=== PATIENT | male | born 1965 | race Caucasian/White ===

== ENCOUNTER 2020-07-24 10:46 | Outpatient (CLI) | payer MEDICARE, SELFPAY ==
--- NOTE | 2020-07-24 11:15 | XR_ITS ---
WS: [id number] Right shoulder, 3 views, 07/24/2020 Clinical Data: PAIN IN RIGHT SHOULDER Comparison: None. Findings: No fractures or dislocations are seen. The AC joint is normal. The adjacent right clavicle, right sca pula and ribs are normal. The soft tissues are unremarkable. XR/XR shoulder RT min 2V* [id number] Impression: Negative right shoulder.
--- NOTE | 2020-07-24 11:15 | XR_ITS ---
WS: [id number] Right hand, 3 views, 07/24/2020 Clinical Data: PAIN IN RIGHT HAND Comparison: None. Findings: No fractures or dislocations are seen. The soft tissues are unremarkable. There is minima l calcification adjacent to the right first MCP joint unchanged. XR/XR hand RT min 3V* [id number] Impression: Negative right hand.
--- NOTE | 2020-07-24 11:15 | XR_ITS ---
WS: [id number] Left shoulder, 3 views, 07/24/2020 Clinical Data: PAIN IN LEFT SHOULDER Comparison: None. Findings: No fractures or dislocations are seen. The AC joint shows moderate osteoarthritis. The adjacent left clavicle, left scapula and ribs are normal. The soft tissues are unremarkable. There is an anterior cervical disc fusion. 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
== END 2020-07-24 10:47 | disposition home or self-care (01) ==
PROVIDERS: PCP Internal Medicine; Visit Provider Internal Medicine
DX: M79.641 Pain in right hand (principal); M25.512 Pain in left shoulder; M25.511 Pain in right shoulder; M19.012 Primary osteoarthritis, left shoulder
CPT/HCPCS: 73030; 73130

== ENCOUNTER 2023-12-06 14:39 | Emergency (ER) | payer MEDICARE, SELFPAY ==
[2023-12-06 14:53] VITALS: BP 158/87; PULSE 67; RESP 18; TEMP 36.7; O2SAT 96; BMI 23.9
[2023-12-06 16:16] VITALS: BP 130/101; PULSE 68; RESP 17; O2SAT 98
--- NOTE | 2023-12-06 16:27 | USR_ITS ---
PROCEDURE INFORMATION: Exam: US Duplex Left Lower Extremity Veins, Limited Exam date and time: 12/06/2023 5:37 PM Age: 58 years old Clinical indication: Pain; Foot; Left; Additional info: Swelling TECHNIQUE: Imaging protocol: Real-time duplex ultrasound of the left extremity with 2-D burris scale, color Doppler flow and spectral waveform analysis including responses to compression and other maneuvers (when performed) with image documentation. Limited exam focused on the left lower extremity veins. COMPARISON: US scrotum [id number] 03/17/2018 4:23 PM FINDINGS: Left deep veins: Unremarkable. The common femoral, femoral, proximal profunda femoral, popliteal, posterior tibial and peroneal veins are patent without thrombus. Normal compressibility, augmentation response and Doppler waveforms. Superficial veins: Greater saphenous vein at the saphenofemoral junction is patent without thrombus. Soft tissues: Unremarkable. US/CV venous duplex [facility] [id number] IMPRESSION: No sonographic evidence of deep vein thrombosis.
[2023-12-06 16:30] VITALS: BP 142/80; PULSE 64; RESP 16; O2SAT 97
--- NOTE | 2023-12-06 16:31 | ED_ITS ---
HPI - Extremity Problem 2 General: Chief complaint: Extremity Problem,Nontraumatic Stated complaint: LT foot swollen Time Seen by Provider: 12/06/23 16:20 Source: patient Mode of arrival: ambulatory Limitations: no limitations History of Present Illness: 58-year-old male with a history of rheum atoid arthritis states he been having some pain and swelling in his left ankle for the last few days. States he thought it may be due to his RA states his PCP is concerned he may have a DVT has had a history of an upper extremity DVT. He is on Coumadin along with steroids chronically. He denies any fevers denies any injury Associated symptoms: Deny chest pain, fever(s) or rash Related Data Allergies Allergy/AdvReac Type Severity Reaction Status Date / Time levofloxacin [From Levaquin] Allergy ALGY-Rash Verified 12/06/23 16:45 morphine Allergy ALGY-Redness Verified 12/06/23 16:45 of Skin Review of Systems 2 Const: Denies: fever(s), chills, body aches or change in appetite ENMT: Denies: throat pain or dental pain Card: Denies: chest pain Resp: Denies: dyspnea GI: Denies: abdominal pain, nausea, vomiting or diarrhea Musc: Reports: extremity pain; Denies: neck pain or back pain Skin/Breast: Denies: rash Neuro: Denies: headache(s) Physical Exam 2 Const: COMMON NORMALS: no acute distress, patient oriented x3 and healthy appearing HENMT: COMMON NORMALS: normocephalic and atraumatic HEAD & SCALP: n ormocephalic and atraumatic Neck/C-Spine: COMMON NORMALS: full ROM and supple Chest: COMMONS NORMALS: normal inspection of the chest Resp: COMMON NORMALS: normal respiratory effort Cardio: COMMON NORMALS: regular rate RATE: regular rate Extremity: NARRATIVE EXTREMITY EXAM: Slight tenderness to left lateral ankle minimal swelling no redness noted distal pulses intact Neuro: COMMON NORMALS: patient oriented x3, moves all extremities and no focal motor deficits Psych: COMMON NORMALS: mental status grossly normal, Normal thought process present and cooperative THOUGHT PROCESS: Normal thought process present Skin: COMMON NORMALS: no rashes or lesions noted and no wounds GENERAL SKIN EXAM: no rashes or lesions noted Course 2 Vital Signs: Vital signs: Vital Signs Temperature 98.1 F 12/06/23 14:53 Pulse Rate 64 12/06/23 16:30 Respiratory Rate 16 12/06/23 16:30 Blood Pressure 142/80 12/06/23 16:30 Pulse Oximetry 97 12/06/23 16:30 Oxygen Delivery Me thod Room Air 12/06/23 16:30 MDM - Extremity (Nontraumatic) Medical Decision Making Patient presents for left foot pains likely from his rheumatoid arthritis no signs of DVT blood works normal no signs of cellulitis or septic joint he stable for discharge follow-up with PCP return if worsening Medical Records I reviewed the patient's medical records. Lab Data I reviewed the patient's lab results. 12/06/23 16:40 Laboratory Results WBC 8.88 10^3/uL (3.29-11.43) 12/06/23 16:40 RBC 4.10 10^6/uL (3.85-5.65) 12/06/23 16:40 Hgb 14.40 g/dL (11.27-16.99) 12/06/23 16:40 Hct 41.3 % (37-53) 12/06/23 16:40 MCV 100.7 fl (82-101) 12/06/23 16:40 MCH 35.1 pg (27-33) H 12/06/23 16:40 MCHC 34.9 g/dL (30-55) 12/06/23 16:40 RDW 14.8 % (12.1-15.1) 12/06/23 16:40 Plt Count 367 10^3/cmm (157-399) 12/06/23 16:40 MPV 8.2 fL (7.4-10.4) 12/06/23 16:40 Neut % (Auto) 72.8 % 12/06/23 16:40 Lymph % (Auto) 17.8 % 12/06/23 16:40 [place] % (Auto) 8.8 % 12/06/23 16:40 Eos % (Auto) 0.0 % 12/06/23 16:40 Baso % (Auto) 0.3 % 12/06/23 16:40 Neut # (Auto) 6.46 10^3/uL (1.8-7.7) 12/06/23 16:40 Lymph # (Auto) 1.6 10^3/uL (0.8-4.8) 12/06/23 16:40 [place] # (Auto) 0.8 10^3/uL (0.2-0.9) 12/06/23 16:40 Eos # (Auto) 0.0 10^3/uL (0.0-0.8) 12/06/23 16:40 Baso # (Auto) 0.0 10^3/uL (0.0-0.1) 12/06/23 16:40 Nucleated RBC % (auto) 0 % 12/06/23 16:40 Nucleated RBCs # 0.0 /100WBC 12/06/23 16:40 ESR < 1 mm/hr (0-10) 12/06/23 16:40 PT 25.80 SECONDS (12.1-14.9) H 12/06/23 16:40 INR 2.26 (0.8-1.2) H 12/06/23 16:40 All radiology interpretation(s) finalized by discharge Discharge Plan Discharge Patient Disposition: Home Clinical Impression: Foot pain, left Condition: Stable Discharge Orders: Discharge ED (Routine); Ordered 12/06/23 Ordered By: Joce Aponte Referrals: Jacki Pappas MD [Primary Care Provider] - Discharge Diet: Advance as tolerated Discharge Activity: Resume usual activity Patient Instructions: Arthralgia (ED) Coding Level of Care Code ED Professional Poker Player for Armand Lino
[2023-12-06] MEDS: HYDROcodone-acetaminophen 5-325 mg Tablet 1 TAB PO (16:48)
[2023-12-06 16:51] LABS: Basophils % 0.3 %; Hematocrit 41.3 % (37-53); Lymphocytes # 1.6 10^3/uL (0.8-4.8); Lymphocytes % 17.8 %; Mean Corpuscular HGB Conc 34.9 g/dL (30-55); Mean Corpuscular Hemoglobin 35.1 pg (27-33); Mean Corpuscular Volume 100.7 fl (82-101); Mean Platelet Volume 8.2 fL (7.4-10.4); Monocytes # 0.8 10^3/uL (0.2-0.9); Monocytes % 8.8 %; Neutrophils # 6.46 10^3/uL (1.8-7.7); Neutrophils % 72.8 %; Nucleated Red Blood Cells % 0 %; Platelet Count 367 10^3/cmm (157-399); Red Cell Distribution Width 14.8 % (12.1-15.1); White Blood Count 8.88 10^3/uL (3.29-11.43)
[2023-12-06 16:59] LABS: INR 2.26 (0.8-1.2)
[2023-12-06 17:16] LABS: Erythrocyte Sedimentation Rate < 1 mm/hr (0-10)
[2023-12-06] MEDS: dexamethasone 10 mg/mL INJ IM (18:31)
[2023-12-06 18:38] VITALS: BP 144/94; PULSE 63; O2SAT 95
== END 2023-12-06 18:41 | disposition home or self-care (01) ==
PROVIDERS: Emergency Provider Emergency Medicine; PCP Internal Medicine
DX: M79.672 Pain in left foot (principal); M25.572 Pain in left ankle and joints of left foot; M06.9 Rheumatoid arthritis, unspecified; Z86.718 Personal history of other venous thrombosis and embolism; Z79.01 Long term (current) use of anticoagulants
CPT/HCPCS: 36415; 85025; 85610; 85651; 93971; 96372; 99284; J1100

== ENCOUNTER 2024-02-22 12:24 | Emergency (ER) | payer MEDICARE, SELFPAY ==
[2024-02-22 12:29] VITALS: BP 160/68; PULSE 73; RESP 18; TEMP 36.5; O2SAT 96; BMI 24.5
[2024-02-22 13:10] VITALS: BP 149/77; PULSE 67; RESP 20; O2SAT 96
--- NOTE | 2024-02-22 13:53 | ED_ITS ---
HPI - Animal Bite General: Chief Complaint: Animal Bite Stated Complaint: R. hand injury , bit by cat, bleeding badly Time Seen by Provider: 02/22/24 13:04 Source: patient Mode of arrival: ambulatory Limitations: no limitations History of Present Illness: Patient is a 58-year-old male on anticoagulation presenting to the emergency department with notable cat bites and scratches to the bilateral upper extremities, primarily to his right hand where there is a laceration to his thumb. States this was an unprovoked attack, he was trying to rescue a kitten that seem to be in distress but subsequently got loose and attacked him. Unknown his cat was not what his vaccination status is. States his tetanus is not up-to-date. He is on Coumadin and bleeding is controlled on arrival, was controlled with direct pressure. This did occur about an hour or so prior to arrival. No foreign body or contamination, no fevers or nausea/vomiting, or other symptoms reported at this time. Vital stable at this time. MD complaint: animal bite Onset (ago): hour(s) Animal: cat Description of animal: wild animal and immunizations unknown Mechanism: bite and scratch Location - Extremities: Bilateral: hand Context: unprovoked Associated symptoms: Deny chills, fever(s) or headache(s) Treatments prior to arrival: wound dressing(s) Related Data Previous Rx's Medication Instructions Recorded amoxicillin 875 mg-potassium 1 tab PO BID 10 days #20 tabs 02/22/24 clavulanate 125 mg tablet azithromycin 500 mg tablet 500 mg PO DAILY 5 days #5 tabs 02/22/24 Allergies Allergy/AdvReac Type Severity Reaction Status Date / Time levofloxacin [From Levaquin] Allergy ALGY-Rash Verified 02/22/24 12:37 morphine Allergy ALGY-Redness Verified 02/22/24 12:37 of Skin Review of Systems General: Reports: 10 or more systems reviewed and unremarkable except in HPI and below Const: Denies: fever(s) or chills Card: Denies: chest pain Resp: Denies: dyspnea GI: Denies: abdominal pain, nausea, vomiting or diarrhea Musc: Denies: extremity pain or joint pain Skin/Breast: Reports: skin pain, skin tenderness and new lesions (Scattered lacerations and abrasions to bilateral hands); Denies: rash Neuro: Denies: headache(s) Physical Exam Const: COMMON NORMALS: no acute distress, average body habitus, patient oriented x3, no limitations, healthy appearing, alert and well nourished HENMT: COMMON NORMALS: normocephalic and atraumatic HEAD & SCALP: normocephalic and atraumatic Neck/C-Spine: COMMON NORMALS: full ROM, no lymphadenopathy, supple and no meningeal signs Resp: COMMON NORMALS: normal respiratory effort, No use of accessory muscles and clear to auscultation bilaterally AUSCULTATION: clear to auscultation bilaterally Cardio: COMMON NORMALS: regular rate and regular rhythm RATE: regular rate RHYTHM: regular rhythm Extremity: COMMON NORMALS: full ROM and capillary refill normal NARRATIVE EXTREMITY EXAM: Distal sensory exam, specifically of his right hand is intact with good strength. Neuro: COMMON NORMALS: patient oriented x3, moves all extremities, no focal motor deficits and no sensory deficits noted SENSORIUM/ORIENTATION: Yes alert MENINGEAL SIGNS: Yes no meningeal signs Skin: COMMON NORMALS: turgor normal NARRATIVE SKIN EXAM: To the bilateral hands there are scattered superficial abrasions. There is a 2 cm laceration that is superficial over the patient's dorsal aspect of right first MCP with no active bleeding, foreign body or contamination. GENERAL SKIN EXAM: turgor normal Course Vital Signs: Vital signs: Vital Signs Temperature 97.7 F 02/22/24 12:29 Pulse Rate 67 02/22/24 13:10 Respiratory Rate 20 H 02/22/24 13:10 Blood Pressure 149/77 02/22/24 13:10 Pulse Oximetry 96 02/22/24 13:10 Oxygen Delivery Me thod Room Air 02/22/24 13:10 MDM - Animal Bite Medical Decision Making Patient presenting with numerous cat bites and cat scratches after trying to rescue wild cat, 1 laceration present that was very carefully repaired with 2 simple interrupted sutures to allow for any draining. He was started on rabies vaccination series and tetanus was updated. Handled the procedure well, mild amount of bleeding secondary to his being on warfarin. He is instructed to have the sutures out 5 days and thoroughly discussed with him signs and symptoms to watch for. He will start on both azithromycin for the cat scratch and Augmentin for the bites, and monitor for any new or worsening symptoms. No radiology studies performed this visit Discharge Plan Discharge Patient Disposition: Home Clinical Impression: Cat scratch Cat bite Qualifiers: Encounter type: initial encounter Qualified Code(s): W55.01XA - Bitten by cat, initial encounter Laceration of finger of right hand Qualifiers: Encounter type: initial encounter Finger: thumb Damage to nail status: without damage Foreign body presence: without foreign body Qualified Code(s): S61.011A - Laceration without foreign body of right thumb without damage to nail, initial encounter Condition: Stable Prescriptions: New amoxicillin-pot clavulanate 875-125 mg tablet 1 tab PO BID 10 Days Qty: 20 0RF azithromycin 500 mg tablet 500 mg PO DAILY 5 Days Qty: 5 0RF Discharge Orders: Discharge ED (Routine); Ordered 02/22/24 Ordered By: Jesus Coppola Referrals: Denilson Hills MD [Primary Care Provider] - Patient Instructions: Animal Bite (ED), Laceration (ED), Cat Scratch Disease (ED) Activity Restrictions/Additional Instructions: See attached patient instructions for further education. Have your sutures out in 5 days. Please monitor the wound every day for any signs of infection such as profuse discharge or significant redness or swelling. Please take antibiotics as prescribed, do not skip or miss any doses. Your tetanus vaccination was updated today. Please follow-up as instructed for your subsequent rabies vaccinations. He will return on day 3, day 7, and day 14. Coding Level of Care Code ED Ad Operations Intern for Armand Lino
[2024-02-22] MEDS: lidocaine 2% INJ 20 mL 10 ML INJECTION (14:47)
[2024-02-22] MEDS: rabies IG 300 unit/mL SDV 1 mL 1410 UNIT IM (14:47)
[2024-02-22] MEDS: tetanus-dipt-pertussis 0.5 mL SDV IM (14:48)
[2024-02-22] MEDS: rabies vaccine 2.5 unit SDV IM (14:49)
[2024-02-22 15:05] VITALS: BP 130/82; PULSE 65; RESP 20; O2SAT 95
== END 2024-02-22 15:06 | disposition home or self-care (01) ==
PROVIDERS: Emergency Provider Physician Assistant; PCP Family Medicine
DX: S61.011A Laceration without foreign body of right thumb without damage to nail, initial encounter (principal); W55.01XA Bitten by cat, initial encounter; Z20.3 Contact with and (suspected) exposure to rabies; Z29.14 Encounter for prophylactic rabies immune globulin
CPT/HCPCS: 90375; 90471; 90675; 90715; 99283

== ENCOUNTER 2024-02-24 05:22 | Emergency (ER) | payer MEDICARE, MEDICAID, SELFPAY ==
[2024-02-24] VITALS (9 sets, daily range): BP systolic 119–140; BP diastolic 77–90; PULSE 56–68; RESP 16–18; TEMP 36.4; O2SAT 93–98; BMI 23.5
--- NOTE | 2024-02-24 05:52 | ED_ITS ---
HPI - Extremity Injury (Upper) 2 General: Chief Complaint: Animal Bite Stated Complaint: infected oozing cat bite swollen up arm sick Time Seen by Provider: 02/24/24 05:33 History of Present Illness: 58-year-old male presents to the emergen cy room with complaints of swollen inflamed arm. Patient was seen 2 days ago after a bit scratched by a cat that his tetanus is up-to-date. He was started on rabies vaccinations and started on Zithromax and Augmentin. He has not been taking Augmentin because he cannot swallow the pills for the last 2 days he is only taking the Zithromax. He has increased pain and swelling he has not been able to sleep. He has not noticed a fever. He has difficulty with movement in his hand particularly in the first and second digits. Associated symptoms: Denies neck pain Related Data Home Medications Medication Instructions Recorded Confirmed albuterol sulfate 90 mcg/actuation 2 puff inhalation Q6H 02/24/24 02/24/24 aerosol inhaler atorvastatin 40 mg tablet 40 mg PO QPM 02/24/24 02/24/24 cholecalciferol (vitamin D3) 25 25 mcg PO DAILY 02/24/24 02/24/24 mcg (1,000 unit) tablet ergocalciferol (vitamin D2) 1,250 1,250 mcg PO Q7D 02/24/24 02/24/24 mcg (50,000 unit) capsule (Vitamin D2) finasteride 5 mg tablet 5 mg PO DAILY 02/24/24 02/24/24 fluticasone fur. 200 mcg-umeclid 1 inh inhalation DAILY 02/24/24 02/24/24 62.5 mcg-vilant 25 mcg inhalat.powder (Trelegy Ellipta) gabapentin 300 mg capsule 300 mg PO TID 02/24/24 02/24/24 ipratropium 0.5 mg-albuterol 3 mg 3 ml inhalation Q6H 02/24/24 02/24/24 (2.5 mg base)/3 mL nebulization soln levothyroxine 112 mcg tablet 112 mcg PO DAILY 02/24/24 02/24/24 lisinopril 20 1 tab PO DAILY 02/24/24 02/24/24 mg-hydrochlorothiazide 12.5 mg tablet pantoprazole 40 mg tablet,delayed 40 mg PO BID 02/24/24 02/24/24 release prednisone 5 mg tablet 5 mg PO DAILY 02/24/24 02/24/24 tadalafil 5 mg tablet 5 mg PO DAILY 02/24/24 02/24/24 warfarin 5 mg tablet (Jantoven) 5 mg PO .EVERY OTHER DAY 02/24/24 02/24/24 Previous Rx's Medication Instructions Recorded amoxicillin 875 mg-potassium 1 tab PO BID 10 days #20 tabs 02/22/24 clavulanate 125 mg tablet azithromycin 500 mg tablet 500 mg PO DAILY 5 days #5 tabs 02/22/24 Allergies Allergy/AdvReac Type Severity Reaction Status Date / Time levofloxacin [From Levaquin] Allergy ALGY-Rash Verified 02/22/24 12:37 morphine Allergy ALGY-Redness Verified 02/22/24 12:37 of Skin Review of Systems 2 Const: Denies: fever(s) or chills Card: Denies: chest pain Resp: Denies: dyspnea GI: Denies: abdominal pain : Denies: dysuria, urinary frequency or urinary urgency Musc: Reports: extremity pain and extremity swelling; Denies: neck pain or back pain Skin/Breast: Denies: rash PFSH ED 2 PFSH: Medical History (Updated 02/24/24 @ 12:53 by Randall Aponte DO) Coronary artery disease DVT (deep venous thrombosis) TIA (transient ischemic attack) Tobacco dependency COPD (chronic obstructive pulmonary disease) Rheumatoid arthritis Surgical History (Updated 02/24/24 @ 11:19 by Scott Cuellar MD) History of neck surgery Family History Other Stroke Social History (Updated 02/24/24 @ 11:20 by Scott Cuellar MD) Smoking and tobacco/nicotine status: current every day tobacco/nicotine user Alcohol intake: current Alcohol intake frequency: 3 or more drinks per day Substance/Drug Use: never Physical Exam 2 Const: GENERAL APPEARANCE: cooperative ORIENTATION/CONSCIOUSNESS: Yes awake, Yes oriented to person, Yes oriented to place and Yes oriented to time HENMT: COMMON NORMALS: normocephalic, atraumatic and hearing grossly normal bilaterally HEAD & SCALP: normocephalic and atraumatic Resp: COMMON NORMALS: normal respiratory effort, No retractions, No use of accessory muscles and clear to auscultation bilaterally AUSCULTATION: clear to auscultation bilaterally Cardio: COMMON NORMALS: regular rate, regular rhythm and No murmurs present (Cardio) RATE: regular rate RHYTHM: regular rhythm GI: COMMON NORMALS: Soft to palpation and No hepatosplenomegaly present A USCULTATION: Yes normoactive bowel sounds PALPATION: Yes Soft to palpation, No Tenderness to palpation present (GI), No Guarding due to palpation present (GI) and Yes No hepatosplenomegaly present Extremity: OTHER: Right hand swelling inflammation reddened indurated. Multiple abrasions and puncture wounds particularly at the MP joint on the right first digit also on the distal metacarpal and proximal phalanx of the second digit. No active drainage from any wounds no obvious abscess. There is proximal lymphangitic spread there is also scratches on the forearm just distal to the antecubital fossa laterally Neuro: SENSORIUM/ORIENTATION: Yes oriented to person, Yes oriented to place and Yes oriented to time Skin: COMMON NORMALS: no rashes or lesions noted GENERAL SKIN EXAM: no rashes or lesions noted Course 2 Vital Signs: Vital signs: Vital Signs Temperature 97.5 F L 02/24/24 06:14 Pulse Rate 61 02/24/24 11:59 Respiratory Rate 16 02/24/24 11:59 Blood Pressure 130/85 02/24/24 11:59 Pulse Oximetry 97 02/24/24 11:59 Oxygen Delivery Me thod Room Air 02/24/24 11:59 MDM - Extremity Injury (Upper) Medical Decision Making Initially was planning to admit. Consulted orthopedics Dr. Bagley recommends transfer discussed with Dr. Marquez. Will transfer to [facility] hand surgeon has reviewed the CT scan request transfer to ER Dr. Salazar in the ER will be receiving and will consult hand surgery patient was initially given Unasyn and cultures were done. Medical Records I reviewed the patient's medical records. Lab Data I reviewed the patient's lab results. 02/24/24 07:26 02/24/24 07:[address] 02/24/24 06:47 IMPRESSION: 1. Soft tissue cellulitis involving the first digit. No evidence of drainable abscess or fluid collection. 2. Small amount of edema and cellulitis involving the dorsal soft tissues and extensor retinaculum with mild induration and edema. This also appears to involve the carpal tunnel and palmar soft tissues. Laboratory Results WBC 11.33 10^3/uL (3.29-11.43) 02/24/24 07: RBC 4.57 10^6/uL (3.85-5.65) 02/24/24 07:26 Hgb 16.20 g/dL (11.27-16.99) 02/24/24 07:26 Hct 45.4 % (37-53) 02/24/24 07: MCV 99.3 fl (82-101) 02/24/24 07:26 MCH 35.4 pg (27-33) H 02/24/24 07: MCHC 35.7 g/dL (30-55) 02/24/24 07: RDW 13.2 % (12.1-15.1) 02/24/24 07:26 Plt Count 357 10^3/cmm (157-399) 02/24/24 07:26 MPV 8.9 fL (7.4-10.4) 02/24/24 07:26 Neut % (Auto) 63.9 % 02/24/24 07:26 Lymph % (Auto) 22.3 % 02/24/24 07:26 [place] % (Auto) 11.6 % 02/24/24 07:26 Eos % (Auto) 1.3 % 02/24/24 07:26 Baso % (Auto) 0.6 % 02/24/24 07:26 Neut # (Auto) 7.24 10^3/uL (1.8-7.7) 02/24/24 07:26 Lymph # (Auto) 2.5 10^3/uL (0.8-4.8) 02/24/24 07:26 [place] # (Auto) 1.3 10^3/uL (0.2-0.9) H 02/24/24 07:26 Eos # (Auto) 0.2 10^3/uL (0.0-0.8) 02/24/24 07:26 Baso # (Auto) 0.1 10^3/uL (0.0-0.1) 02/24/24 07:26 Nucleated RBC % (auto) 0 % 02/24/24 07:26 Nucleated RBCs # 0.0 /100WBC 02/24/24 07:26 PT 32.20 SECONDS (12.1-14.9) H 02/24/24 07:26 INR 2.99 (0.8-1.2) H 02/24/24 07:26 Sodium 141 mmol/L (136-145) 02/24/24 07:26 Potassium 4.1 mmol/L (3.5-5.1) 02/24/24 07:26 Chloride 101 mmol/L (98-107) 02/24/24 07:26 Carbon Dioxide 28 mmol/L (22-29) 02/24/24 07:26 Anion Gap 16.1 (5-19) 02/24/24 07:26 BUN 10 mg/dL (8-23) 02/24/24 07:26 Creatinine 0.5 mg/dL (0.7-1.2) L 02/24/24 07:26 GFR Calculation 169.6 mL/min (90-130) H 02/24/24 07:26 Glucose 104 mg/dL (65-115) 02/24/24 07:26 Calculated Osmolality 291 mOsm/kg (285-295) 02/24/24 07:26 Lactic Acid 1.3 mmol/L (0.5-2.2) 02/24/24 07:26 Calcium 9.2 mg/dL (8.5-10.5) 02/24/24 07:26 Total Bilirubin 0.2 mg/dL (0.15-1.2) 02/24/24 07:26 AST 20 U/L (0-40) 02/24/24 07:26 ALT 20 U/L (0-41) 02/24/24 07:26 Alkaline Phosphatase 76 U/L (40-130) 02/24/24 07:26 Total Protein 6.4 g/dL (6.6-8.7) L 02/24/24 07:26 Albumin 3.9 g/dL (3.5-5.2) 02/24/24 07:26 Globulin 2.5 g/dL (1.3-4.6) 02/24/24 07:26 All radiology interpretation(s) finalized by discharge Discharge Plan Discharge Patient Disposition: Transfer to ED Clinical Impression: Cellulitis and abscess of hand, Cat bite, Cat scratch Condition: Stable Prescriptions: No Action atorvastatin 40 mg tablet 40 mg PO QPM ipratropium-albuterol 0.5 mg-3 mg(2.5 mg base)/3 mL solution for nebulization 3 ml INHALATION Q6H lisinopril-hydrochlorothiazide 20-12.5 mg tablet 1 tab PO DAILY prednisone 5 mg tablet 5 mg PO DAILY pantoprazole 40 mg tablet,delayed release (DR/EC) 40 mg PO BID warfarin [Jantoven] 5 mg tablet 5 mg PO .EVERY OTHER DAY gabapentin 300 mg capsule 300 mg PO TID ergocalciferol (vitamin D2) [Vitamin D2] 1,250 mcg (50,000 unit) capsule 1,250 mcg PO Q7D albuterol sulfate 90 mcg/actuation HFA aerosol inhaler 2 puff INHALATION Q6H finasteride 5 mg tablet 5 mg PO DAILY levothyroxine 112 mcg tablet 112 mcg PO DAILY tadalafil 5 mg tablet 5 mg PO DAILY cholecalciferol (vitamin D3) 25 mcg (1,000 unit) tablet 25 mcg PO DAILY Trelegy Ellipta 200-62.5-25 mcg blister with device 1 inh INHALATION DAILY amoxicillin-pot clavulanate 875-125 mg tablet 1 tab PO BID 10 Days Qty: 20 0RF azithromycin 500 mg tablet 500 mg PO DAILY 5 Days Qty: 5 0RF Referrals: Denilson Hills MD [Primary Care Provider] - Coding Level of Care Code ED Otorhinolaryngologist for Armand Lino
--- NOTE | 2024-02-24 06:47 | CT_ITS ---
WS: [id number] CONTRAST-enhanced CT RIGHT HAND TECHNIQUE: Contrast-enhanced CT RIGHT hand with coronal and sagittal reformatted images. CLINICAL INFORMATION: cat bite infection COMPARISON: None. DLP: 113.[address] scans at [facility] use at least one of these dose optimization techniques: automated e xposure control; mA and/or kV adjustment per patient size (includes targeted exams where dose is matc hed to clinical indication); or iterative reconstruction. FINDINGS: Soft tissue edema with skin thickening and cellulitis involving the thumb. Soft tissue edema extends to the base of the thumb at the head of the first metacarpal. This extends to the tip of the distal p halanx. No evidence of drainable abscess or fluid collection. Degenerative arthritis at the first MTP joint. No other acute findings. Additional mild edema with skin thickening and slight induration involving the extensor retinaculum a s well as the carpal tunnel and palmar soft tissues. Small mount of fluid along the carpal tunnel and extensor retinaculum. CT/CT hand RT w con [id number] IMPRESSION: 1. Soft tissue cellulitis involving the first digit. No evidence of drainable abscess or fluid collection. 2. Small amount of edema and cellulitis involving the dorsal soft tissues and extensor retinaculum with mild induration and edema. This also appears to invol ve the carpal tunnel and palmar soft tissues.
[2024-02-24] MEDS: ampicillin-sulbactam 3 GM in sodium chloride 0.9% (plus) 50 ML IV (07:43)
[2024-02-24 07:52] LABS: Lactic Sepsis W/Reflex 1.3 mmol/L (0.5-2.2)
[2024-02-24 07:53] LABS: Alanine Aminotransferase 20 U/L (0-41); Albumin Level 3.9 g/dL (3.5-5.2); Alkaline Phosphatase 76 U/L (40-130); Anion Gap 16.1 (5-19); Aspartate Amino Transferase 20 U/L (0-40); Blood Urea Nitrogen 10 mg/dL (8-23); Calcium 9.2 mg/dL (8.5-10.5); Carbon Dioxide 28 mmol/L (22-29); Chloride 101 mmol/L (98-107); Creatinine Clr Calc Pharmacy 148.6124; Globulin 2.5 g/dL (1.3-4.6); Glomerular Filtration Rate 169.6 mL/min (90-130); Glucose 104 mg/dL (65-115); Osmolality Calculated 291 mOsm/kg (285-295); Potassium 4.1 mmol/L (3.5-5.1); Sodium 141 mmol/L (136-145); Total Bilirubin 0.2 mg/dL (0.15-1.2); Total Protein 6.4 g/dL (6.6-8.7)
[2024-02-24 08:02] LABS: Basophils # 0.1 10^3/uL (0.0-0.1); Basophils % 0.6 %; Eosinophils # 0.2 10^3/uL (0.0-0.8); Eosinophils % 1.3 %; Hematocrit 45.4 % (37-53); Lymphocytes # 2.5 10^3/uL (0.8-4.8); Lymphocytes % 22.3 %; Mean Corpuscular HGB Conc 35.7 g/dL (30-55); Mean Corpuscular Hemoglobin 35.4 pg (27-33); Mean Corpuscular Volume 99.3 fl (82-101); Mean Platelet Volume 8.9 fL (7.4-10.4); Monocytes # 1.3 10^3/uL (0.2-0.9); Monocytes % 11.6 %; Neutrophils # 7.24 10^3/uL (1.8-7.7); Neutrophils % 63.9 %; Nucleated Red Blood Cells % 0 %; Platelet Count 357 10^3/cmm (157-399); Red Blood Count 4.57 10^6/uL (3.85-5.65); Red Cell Distribution Width 13.2 % (12.1-15.1); White Blood Count 11.33 10^3/uL (3.29-11.43)
--- NOTE | 2024-02-24 08:15 | PC.NURSE ---
THIS NURSE ASSUMED CARE @ 0800.
[2024-02-24] MEDS: iohexol 350 mg/mL 500 mL Btl (per mL) IV (08:55)
[2024-02-24] MEDS: ibuprofen 800 mg tablet PO (10:53)
--- NOTE | 2024-02-24 11:05 | PM.CONSULT ---
Providers/Reason For Consult Consulting Physician/Specialty*: Emergency department Reason for Consult*: Cat bite right hand Primary Care Provider: Denilson Hills MD History of Present Illness History of Present Illness Alirio Joaquin is a 58 year old male. By cat 2 days ago. Patient stated that his thumb and hand are significant swollen compared to normal. Patient cannot move his thumb without any pain. Review of Systems Const: Denies: fever(s) or chills Card: Denies: chest pain Resp: Denies: dyspnea GI: Denies: abdominal pain : Denies: dysuria, urinary frequency or urinary urgency Musc: Reports: extremity pain and extremity swelling; Denies: neck pain or back pain Skin/Breast: Denies: rash Medications/Allergies Home Medications Medication Instructions Recorded Confirmed Last Taken Type amoxicillin 875 mg-potassium 1 tab PO BID 10 days #20 tabs 02/22/24 02/24/24 Unknown Rx clavulanate 125 mg tablet azithromycin 500 mg tablet 500 mg PO DAILY 5 days #5 tabs 02/22/24 02/24/24 Unknown Rx albuterol sulfate 90 mcg/actuation 2 puff inhalation Q6H 02/24/24 02/24/24 Unknown History aerosol inhaler atorvastatin 40 mg tablet 40 mg PO QPM 02/24/24 02/24/24 Unknown History cholecalciferol (vitamin D3) 25 25 mcg PO DAILY 02/24/24 02/24/24 Unknown History mcg (1,000 unit) tablet ergocalciferol (vitamin D2) 1,250 1,250 mcg PO Q7D 02/24/24 02/24/24 Unknown History mcg (50,000 unit) capsule (Vitamin D2) finasteride 5 mg tablet 5 mg PO DAILY 02/24/24 02/24/24 Unknown History fluticasone fur. 200 mcg-umeclid 1 inh inhalation DAILY 02/24/24 02/24/24 Unknown History 62.5 mcg-vilant 25 mcg inhalat.powder (Trelegy Ellipta) gabapentin 300 mg capsule 300 mg PO TID 02/24/24 02/24/24 Unknown History ipratropium 0.5 mg-albuterol 3 mg 3 ml inhalation Q6H 02/24/24 02/24/24 Unknown History (2.5 mg base)/3 mL nebulization soln levothyroxine 112 mcg tablet 112 mcg PO DAILY 02/24/24 02/24/24 Unknown History lisinopril 20 1 tab PO DAILY 02/24/24 02/24/24 Unknown History mg-hydrochlorothiazide 12.5 mg tablet pantoprazole 40 mg tablet,delayed 40 mg PO BID 02/24/24 02/24/24 Unknown History release prednisone 5 mg tablet 5 mg PO DAILY 02/24/24 02/24/24 Unknown History tadalafil 5 mg tablet 5 mg PO DAILY 02/24/24 02/24/24 Unknown History warfarin 5 mg tablet (Jantoven) 5 mg PO .EVERY OTHER DAY 02/24/24 02/24/24 Unknown History Allergies Allergy/AdvReac Type Severity Reaction Status Date / Time levofloxacin [From [facility]] Allergy ALGY-Rash Verified 02/22/24 12:37 morphine Allergy ALGY-Redness Verified 02/22/24 12:37 of Skin Vitals/I&O/Wt Last Vital Signs Temp 97.5 F L 02/24/24 06:14 Pulse 62 02/24/24 10:57 Resp 16 02/24/24 10:57 BP 131/77 02/24/24 10:57 Pulse Ox 98 02/24/24 10:57 O2 Del Method Room Air 02/24/24 10:57 02/23/24 02/24/24 02/24/24 22:59 06:59 14:59 Intake Total 0 / 0 50 / 50 Balance 0 / 0 50 / 50 Weight last 48 hrs Weight 150 lb Physical Exam Narrative: Right hand over the metacarpal phalangeal joint significant swelling redness. Looks like there is 2 stitches as well. Patient has multiple scratches on his arm. And hand. Patient has pain with passive range of motion of his thumb. Data 02/24/24 07:26 02/24/24 07:26 Micro: Microbiology 02/24/24 07:30 Blood Culture - Preliminary Blood SPECIMEN COLLECTED 02/24/24 07:26 Blood Culture - Preliminary Blood SPECIMEN COLLECTED A&P Assessment and plan (1) Tenosynovitis of hand: Concern for infected tenosynovitis and infection in patient's hand. Particular over the thumb area. Patient's been on antibiotics and this is progressively got worse over the last 2 days. At this point and recommend transfer to the patient has a hand surgeon. Coding Level of Care Code Acute Code for Chg Fwd Diagnoses Tenosynovitis of hand M65.949
--- NOTE | 2024-02-24 11:16 | P.CONIM_ITS ---
Providers/Reason For Consult 2 Consulting Physician/Specialty*: Scott Cuellar MD Reason for Consult*: Cellulitis Requesting Physician: Dr. Aponte Primary Care Provider: Denilson Hills MD History of Present Illness History of Present Illness Alirio Joaquin is a 58 year old male presenting to the emergency department I have been asked to see in consultation and possibly admit. He reports he was bitten by a cat on February 21. At that time he was given antibiotics to take including Augmentin, received a rabies vaccine, and a tetanus booster. He reports he has not been able to take the Augmentin as the pill is big, and he has a history of esophageal narrowing for which she has had 2 dilations in the past. He has not had fevers but has had increasing pain in his right hand, with significant pain up into his right axilla currently. He denies any nausea, vomiting. He reports an extensive past history including COPD, TIAs, coronary disease, DVT for which she is on anticoagulation, rheumatoid arthritis for which she takes prednisone daily Review of Systems 2 General: Reports: 10 or more systems reviewed and unremarkable except in HPI and below Medications/Allergies Home Medications Medication Instructions Recorded Confirmed Last Taken Type amoxicillin 875 mg-potassium 1 tab PO BID 10 days #20 tabs 02/22/24 02/24/24 Unknown Rx clavulanate 125 mg tablet azithromycin 500 mg tablet 500 mg PO DAILY 5 days #5 tabs 02/22/24 02/24/24 Unknown Rx albuterol sulfate 90 mcg/actuation 2 puff inhalation Q6H 02/24/24 02/24/24 Unknown History aerosol inhaler atorvastatin 40 mg tablet 40 mg PO QPM 02/24/24 02/24/24 Unknown History cholecalciferol (vitamin D3) 25 25 mcg PO DAILY 02/24/24 02/24/24 Unknown History mcg (1,000 unit) tablet ergocalciferol (vitamin D2) 1,250 1,250 mcg PO Q7D 02/24/24 02/24/24 Unknown History mcg (50,000 unit) capsule (Vitamin D2) finasteride 5 mg tablet 5 mg PO DAILY 02/24/24 02/24/24 Unknown History fluticasone fur. 200 mcg-umeclid 1 inh inhalation DAILY 02/24/24 02/24/24 Unknown History 62.5 mcg-vilant 25 mcg inhalat.powder (Trelegy Ellipta) gabapentin 300 mg capsule 300 mg PO TID 02/24/24 02/24/24 Unknown History ipratropium 0.5 mg-albuterol 3 mg 3 ml inhalation Q6H 02/24/24 02/24/24 Unknown History (2.5 mg base)/3 mL nebulization soln levothyroxine 112 mcg tablet 112 mcg PO DAILY 02/24/24 02/24/24 Unknown History lisinopril 20 1 tab PO DAILY 02/24/24 02/24/24 Unknown History mg-hydrochlorothiazide 12.5 mg tablet pantoprazole 40 mg tablet,delayed 40 mg PO BID 02/24/24 02/24/24 Unknown History release prednisone 5 mg tablet 5 mg PO DAILY 02/24/24 02/24/24 Unknown History tadalafil 5 mg tablet 5 mg PO DAILY 02/24/24 02/24/24 Unknown History warfarin 5 mg tablet (Jantoven) 5 mg PO .EVERY OTHER DAY 02/24/24 02/24/24 Unknown History Allergies Allergy/AdvReac Type Severity Reaction Status Date / Time levofloxacin [From Levaquin] Allergy ALGY-Rash Verified 02/22/24 12:37 morphine Allergy ALGY-Redness Verified 02/22/24 12:37 of Skin PFSH Acute 2 PFSH: Medical History (Updated 02/24/24 @ 11:19 by Scott Cuellar MD) Coronary artery disease DVT (deep venous thrombosis) TIA (transient ischemic attack) Tobacco dependency COPD (chronic obstructive pulmonary disease) Rheumatoid arthritis Surgical History (Updated 02/24/24 @ 11:19 by Scott Cuellar MD) History of neck surgery Family History Other Stroke Social History (Updated 02/24/24 @ 11:20 by Scott Cuellar MD) Smoking and tobacco/nicotine status: current every day tobacco/nicotine user Alcohol intake: current Alcohol intake frequency: 3 or more drinks per day Substance/Drug Use: never Vitals/I&O/Wt Last Vital Signs Temp 97.5 F L 02/24/24 06:14 Pulse 62 02/24/24 10:57 Resp 16 02/24/24 10:57 BP 131/77 02/24/24 10:57 Pulse Ox 98 02/24/24 10:57 O2 Del Method Room Air 02/24/24 10:57 02/23/24 02/24/24 02/24/24 22:59 06:59 14:59 Intake Total 0 / 0 50 / 50 Balance 0 / 0 50 / 50 Weight last 48 hrs Weight 68.039 kg Physical Exam 2 Narrative: General Exam is white male, reporting right hand pain HEENT: Atraumatic normocephalic. Oropharynx clear Neck is supple no lymphadenopathy or megaly Cardiovascular regular rate and rhythm without murmur Lungs occasional wheeze. Diminished breath sounds bilaterally Abdomen is soft nontender positive bowel sounds exam is deferred Extremities no cyanosis clubbing or edema, cap refill brisk with the exception of the right upper extremity. In that extremity he has edema in his forearm down. He has some significantly more edema involving the webspace of his right hand and his distal MCP joint. He has some sutures around this area, two that appear to be around 5-0 Ethilon. No drainage. Minimal movement of the thumb, with extension causing severe pain. Distal sensation and cap refill intact to all fingers. Radial pulses intact. Skin see findings above, few scattered excoriations on the other arm Neuro no focal deficits Data 02/24/24 07:26 02/24/24 07:26 Other Labs: INR is ordered and pending LFTs are normal Albumin, lactic acid, calcium normal Hand CT demonstrates soft tissue cellulitis involving the first digit with no obvious drainable abscess or collection with some edema and cellulitis of the dorsal soft tissues including the extensor retinaculum, with involvement of the carpal tunnel and palmar soft tissues Micro: Microbiology 02/24/24 07:30 Blood Culture - Preliminary Blood SPECIMEN COLLECTED 02/24/24 07:26 Blood Culture - Preliminary Blood SPECIMEN COLLECTED A&P Assessment and plan (1) Cat bite: Patient has a significant cat bite to his right hand. He was seen several days ago but has not been able to take his Augmentin. He reports this is because the pill was significantly large, and he has a history of esophageal narrowing requiring dilation in the past. He appropriately received tetanus booster, and rabies vaccine was started. Agree Unasyn should be continued as per the emergency department evaluation. Should receive 3 g every 6 hours. Secondary to his immunocompromise state, vancomycin can be added at this time as well. Agree that patient should be hospitalized Agree with orthopedic consultation. They will be galvin in determining if we can care for this gentleman with possible need for hand related procedure here. Blood cultures have been obtained I would hold Coumadin at this point, transitioning to Lovenox when INR is less than 2 Serial exams to continue to monitor for compartment syndrome. The hospitalist service will be glad to take care of this gentleman inpatient after evaluation by orthopedics, if he is appropriate for hospitalization here with our orthopedic coverage. He will need to complete his rabies vaccine series, next injection tomorrow. Qualifiers: Encounter type: initial encounter Qualified Code(s): W55.01XA - Bitten by cat, initial encounter Plan History of tobacco dependency History of TIA History of DVT Hypertension Rheumatoid arthritis on chronic steroid Consult Attestations 2 Medical Necessity Statement: Not applicable Diagnoses Cat bite W55.01XA Encounter type: initial encounter
--- NOTE | 2024-02-24 11:17 | PC.NURSE ---
this nurse assumed pt care at 1100 from Salud RODRIGUEZ.
[2024-02-24 11:27] LABS: INR 2.99 (0.8-1.2)
[2024-02-24] MEDS: VANCOMYCIN ADD-Vantage 1,000 MG in 0.9% NaCl ADD-Vantage 250 ML 250 MG IV (13:35)
--- NOTE | 2024-02-24 14:21 | PHA.VACGOAL ---
Vancomycin Goal - Goal Vancomycin Goal:: 10-15 mg/L Vancomycin Indication:: SSTI (CAT BITE) - Therapy Current therapy:: Other Antibiotic (AMPICILLIN/SULBACTAM) Day of therpy:: Day [1]of [] . Actual body weight (kg): 68.039 kg - Data Labs: WBC 11.33 10^3/uL (3.29-11.43) 02/24/24 07:26 RBC 4.57 10^6/uL (3.85-5.65) 02/24/24 07:26 Hgb 16.20 g/dL (11.27-16.99) 02/24/24 07:26 Hct 45.4 % (37-53) 02/24/24 07:26 MCV 99.3 fl (82-101) 02/24/24 07:26 MCH 35.4 pg (27-33) H 02/24/24 07:26 MCHC 35.7 g/dL (30-55) 02/24/24 07:26 RDW 13.2 % (12.1-15.1) 02/24/24 07:26 Sodium 141 mmol/L (136-145) 02/24/24 07:26 Potassium 4.1 mmol/L (3.5-5.1) 02/24/24 07:26 Chloride 101 mmol/L (98-107) 02/24/24 07:26 Carbon Dioxide 28 mmol/L (22-29) 02/24/24 07:26 Anion Gap 16.1 (5-19) 02/24/24 07:26 BUN 10 mg/dL (8-23) 02/24/24 07:26 Creatinine 0.5 mg/dL (0.7-1.2) L 02/24/24 07:26 GFR Calculation 169.6 mL/min (90-130) H 02/24/24 07:26 Treatment plan:: new consult Regimen:: New start vancomycin for cellulitis (infected cat bite). Received 1000 mg load dose in ER. Started on maintenance dose of 750 mg q8h based on population based pharmacokinetic Nomogram.
--- NOTE | 2024-02-24 15:50 | PC.NURSE ---
THIS NURSE SPOKE WITH [facility]. PATIENT IS OK TO GO WITH IV PER NURSE AND PROVIDER FROM [facility].
== END 2024-02-24 16:30 ==
PROVIDERS: Emergency Provider Family Medicine; PCP Family Medicine
DX: L03.119 Cellulitis of unspecified part of limb (principal); W55.01XA Bitten by cat, initial encounter; W55.03XA Scratched by cat, initial encounter; Z72.0 Tobacco use; Z86.73 Personal history of transient ischemic attack (TIA), and cerebral infarction without residual deficits; J44.9 Chronic obstructive pulmonary disease, unspecified
CPT/HCPCS: 36415; 73201; 80053; 83605; 85025; 85610; 87040; 96365; 96366; 99285; J0295; J3370; J7050

== ENCOUNTER 2024-03-05 06:57 | Outpatient (CLI) | payer MEDICARE, MEDICAID, SELFPAY ==
--- NOTE | 2024-03-05 07:22 | CT_ITS ---
WS: [id number] LDCT LUNG CANCER SCREENING HISTORY: NICOTINE DEPENDENCE,CIGARETTES TECHNIQUE: Axial imaging performed from the apices to 1 cm below the costophrenic angles. Coronal and sagittal reformats are submitted with axial MIP series. All CT scans at [facility] use at least one of these dose optimization techniques: automated exposure control; mA and/or kV adjustment per patient size (includes targeted exams where dose is matched to clinical indication); or iterativ e reconstruction. DLP: 65.50 mGy.cm DIvol: Mean CTDIvol: 1.20 (mGy) COMPARISON: 10/19/2018 Diagnostic quality: Satisfactory Lungs: Mild pulmonary hyperexpansion from emphysema. 2 mm nodule LEFT lung base. Benign granuloma med ial RIGHT lower lobe. No endobronchial lesions. Heart: Normal size heart with no pericardial effusion.. Other findings: Mild atherosclerosis aorta. No enlarged lymph nodes. Normal size pulmonary artery. Th ere are few scattered coronary artery calcifications. Mild hepatic steatosis. Prior cholecystectomy. CT/CT lung screening [id number] IMPRESSION: LUNG-RADS: 2-Benign Appearance or Behavior FOLLOW UP: 12 Month: Continue annual screening with LDCT OTHER FINDINGS (S MODIFIER): None.
== END 2024-03-05 06:58 | disposition home or self-care (01) ==
LOC: RAD 06:58
PROVIDERS: PCP Family Medicine; Visit Provider Family Medicine
DX: Z12.2 Encounter for screening for malignant neoplasm of respiratory organs (principal); F17.210 Nicotine dependence, cigarettes, uncomplicated; J43.9 Emphysema, unspecified; R91.1 Solitary pulmonary nodule; J84.10 Pulmonary fibrosis, unspecified; I70.0 Atherosclerosis of aorta; K76.0 Fatty (change of) liver, not elsewhere classified; Z90.49 Acquired absence of other specified parts of digestive tract
CPT/HCPCS: 71271

== ENCOUNTER → 2024-04-30 12:17 | Outpatient (BNVA) | payer BC, MEDICAID, SELFPAY | PROVIDERS: PCP Family Medicine; Visit Provider Family Medicine | DX: M06.9 Rheumatoid arthritis, unspecified (principal); L40.50 Arthropathic psoriasis, unspecified | CPT/HCPCS: 80053; 84550; 85025; 86140; 86160; 86162; 86235; 86255; 86376; 86431 ==

== ENCOUNTER → 2024-05-03 08:45 | Outpatient (BNVA) | payer BC, MEDICAID, SELFPAY | PROVIDERS: PCP Family Medicine; Visit Provider Orthopaedic Surgery | DX: M79.641 Pain in right hand (principal); S61.451D Open bite of right hand, subsequent encounter; W55.01XD Bitten by cat, subsequent encounter | CPT/HCPCS: 73130 ==

== ENCOUNTER 2024-05-31 10:49 | Outpatient (RCR) | payer BC, MEDICAID, SELFPAY | END 2024-06-04 23:59 | disposition home or self-care (01) | LOC: SOT 10:49 | PROVIDERS: Visit Provider Orthopaedic Surgery | DX: M79.641 Pain in right hand (principal); S61.451A Open bite of right hand, initial encounter; X58.XXXA Exposure to other specified factors, initial encounter | CPT/HCPCS: 97165 ==

== ENCOUNTER 2024-06-12 11:03 | Emergency (ER) | payer BC, MEDICAID, SELFPAY ==
[2024-06-12 11:09] VITALS: BP 168/92; PULSE 62; TEMP 36.4; O2SAT 95
--- NOTE | 2024-06-12 11:14 | ECG_ITS ---
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 Measurements Intervals [place] Rate: 60 P: 6 FL: 154 QRS: 25 QRSD: 100 T: 51 QT: 408 QTc: 409 Interpretive Statements SINUS RHYTHM INTERPRETATION BASED ON A DEFAULT AGE OF 40 YEARS Compared to ECG 10/19/2018 23:21:36 Sinus bradycardia no longer present Prolonged QT interval no longer present Electronically Signed On 06-12-2024 18:49:12 CDT by Bailey Sherman M.D. [email or web address]
--- NOTE | 2024-06-12 11:16 | XR_ITS ---
WS: [id number] Exam: XR chest 1V portable [id number] Date/Time of Exam: 06/12/2024 11:53 AM Reason For Exam: sob Comparison 10/19/2018. Lungs are clear and fully expanded. Heart size top limits normal. No pleural effusions. Bony structures are intact. Fusion hardware in the lower C-spine. XR/XR chest 1V portable [id number] IMPRESSION: 1. No acute cardiopulmonary finding.
--- NOTE | 2024-06-12 11:27 | W.ED.SOB ---
HPI - SOB/Dyspnea General: Chief Complaint: Shortness of Breath/Dyspnea Stated Complaint: SOB Time Seen by Provider: 06/12/24 11:22 Source: patient Mode of arrival: ambulatory Limitations: no limitations History of Present Illness: HPI Narrative: 59-year-old male has a history of COPD states that over the last week he has been having increasing wheezing and shortness of breath he states he had a dry cough denies any fevers denies any worse improving factors. Denies any chest pain Associated symptoms: Deny abdominal pain, chest pain, fever(s), nausea or vomiting Related Data Home Medications ?Medication ?Instructions ?Recorded ?Confirmed albuterol sulfate 90 mcg/actuation 2 puff inhalation Q6H 02/24/24 06/12/24 aerosol inhaler atorvastatin 40 mg tablet 40 mg PO QPM 02/24/24 06/12/24 fluticasone fur. 200 mcg-umeclid 1 inh inhalation DAILY 02/24/24 06/12/24 62.5 mcg-vilant 25 mcg inhalat.powder (Trelegy Ellipta) gabapentin 300 mg capsule 300 mg PO TID 02/24/24 06/12/24 ipratropium 0.5 mg-albuterol 3 mg 3 ml inhalation Q6H 02/24/24 06/12/24 (2.5 mg base)/3 mL nebulization soln levothyroxine 112 mcg tablet 112 mcg PO DAILY 02/24/24 06/12/24 lisinopril 20 1 tab PO DAILY 02/24/24 06/12/24 mg-hydrochlorothiazide 12.5 mg tablet pantoprazole 40 mg tablet,delayed 40 mg PO BID 02/24/24 06/12/24 release prednisone 10 mg tablet 10 mg PO DAILY 06/12/24 06/12/24 warfarin 7.5 mg tablet 7.5 mg PO .THREEXWEEK 06/12/24 06/12/24 Previous Rx's ?Medication ?Instructions ?Recorded tadalafil 5 mg tablet (Cialis) 5 mg PO DAILY #90 tabs 05/04/24 prednisone 50 mg tablet 50 mg PO DAILY #5 tabs 06/12/24 Allergies Allergy/AdvReac Type Severity Reaction Status Date / Time levofloxacin (From Levaquin) Allergy ALGY-Rash Verified 06/12/24 11:18 morphine Allergy ALGY-Redness Verified 06/12/24 11:18 of Skin Review of Systems Const: Denies: fever(s), chills, body aches or change in appetite ENMT: Denies: throat pain or dental pain Card: Denies: chest pain Resp: Reports: dyspnea, non-productive cough and wheezing GI: Denies: abdominal pain, nausea, vomiting or diarrhea Musc: Denies: neck pain or back pain Skin/Breast: Denies: rash Neuro: Denies: headache(s) PFSH ED PFSH: Medical History Cat bite of hand GERD without esophagitis Vitamin D deficiency Obstructive sleep apnea on CPAP BPH loc w urin obs/LUTS Hypercholesterolemia Hypertension, essential retirement current use of anticoagulants with INR goal of 2.0-3.0 Screening for lung cancer neg LDCT 03.05.24 Tenosynovitis of right hand cat bite 02/27 Hx of myocardial infarction Nicotine dependence, cigarettes, with other nicotine-induced disorders Hypothyroid Psoriatic arthritis Coronary artery disease hx of [place]; has had ECHOs and cardiac caths; no stents or angioplasty DVT (deep venous thrombosis) hx of 2 DVTs; on warfarin for life TIA (transient ischemic attack) COPD (chronic obstructive pulmonary disease) Rheumatoid arthritis Surgical History Hx of cardiac cath reports he has had 2 angiograms and has minimal plaque but angio and echo show old heart attack History of appendectomy History of cholecystectomy History of hip replacement Right History of neck surgery cervical Family History Father Diabetes mellitus, type 2 Heart disease Stroke Mother Diabetes mellitus, type 2 Heart disease COPD (chronic obstructive pulmonary disease) Social History Smoking and tobacco/nicotine status: current every day tobacco/nicotine user cigarettes Packs smoked per day: 0.75 Alcohol intake: current Alcohol intake frequency: 3 or more drinks per day Alcohol type: beer Substance/Drug Use: never Household members: spouse Marital status: Number of children: 7 Highest education level completed: High School Graduate Current occupational status: disabled 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; 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 Physical Exam Const: COMMON NORMALS: no acute distress, patient oriented x3 and healthy appearing HENMT: COMMON NORMALS: normocephalic and atraumatic HEAD & SCALP: normocephalic and atraumatic Eye: COMMON NORMALS: conjunctivae normal CONJUNCTIVA: Yes conjunctivae normal Neck/C-Spine: COMMON NORMALS: full ROM and supple Chest: COMMONS NORMALS: normal inspection of the chest Resp: COMMON NORMALS: normal respiratory effort, No retractions and No use of accessory muscles AUSCULTATION: wheezes Cardio: COMMON NORMALS: regular rate, regular rhythm and No murmurs present (Cardio) RATE: regular rate RHYTHM: regular rhythm GI: COMMON NORMALS: Normal to inspection, nondistended, normoactive bowel sounds present, Soft to palpation, non-tender and no masses PALPATION: Yes Soft to palpation Extremity: COMMON NORMALS: normal to inspection and full ROM Neuro: COMMON NORMALS: patient oriented x3, moves all extremities and no focal motor deficits Psych: COMMON NORMALS: mental status grossly normal, Normal thought process present and cooperative THOUGHT PROCESS: Normal thought process present Skin: COMMON NORMALS: no rashes or lesions noted and no wounds GENERAL SKIN EXAM: no rashes or lesions noted Course Vital Signs: Vital signs: Vital Signs Temperature 97.6 F 06/12/24 11:09 Pulse Rate 61 06/12/24 12:40 Respiratory Rate 20 H 06/12/24 12:32 Blood Pressure 141/84 06/12/24 12:30 Pulse Oximetry 95 06/12/24 12:32 Oxygen Delivery Me thod Room Air 06/12/24 12:32 MDM - SOB/Dyspnea Medical Decision Making Patient presents here with shortness of breath likely COPD exacerbation he feels proved after steroids and breathing treatment he has not had hypoxia his x-ray shows no signs of pneumonia we will place him on 5 days of steroids he is to follow-up with PCP and return if worsening. Medical Records I reviewed the patient's medical records. Lab Data I reviewed the patient's lab results. 06/12/24 11:32 06/12/24 12:00 Labs/Radiology: Radiology Impressions Chest X-Ray 06/12/24 11:16 IMPRESSION: 1. No acute cardiopulmonary finding. Laboratory Results WBC 7.26 10^3/uL (3.29-11.43) 06/12/24 11:32 RBC 4.63 10^6/uL (3.85-5.65) 06/12/24 11:32 Hgb 15.80 g/dL (11.27-16.99) 06/12/24 11:32 Hct 46.0 % (37-53) 06/12/24 11:32 MCV 99.4 fl (82-101) 06/12/24 11:32 MCH 34.1 pg (27-33) H 06/12/24 11:32 MCHC 34.3 g/dL (30-55) 06/12/24 11:32 RDW 13.5 % (12.1-15.1) 06/12/24 11:32 Plt Count 296 10^3/cmm (157-399) 06/12/24 11:32 MPV 8.7 fL (7.4-10.4) 06/12/24 11:32 Neut % (Auto) 51.4 % 06/12/24 11:32 Lymph % (Auto) 37.1 % 06/12/24 11:32 [place] % (Auto) 9.6 % 06/12/24 11:32 Eos % (Auto) 1.2 % 06/12/24 11:32 Baso % (Auto) 0.6 % 06/12/24 11:32 Neut # (Auto) 3.73 10^3/uL (1.8-7.7) 06/12/24 11:32 Lymph # (Auto) 2.7 10^3/uL (0.8-4.8) 06/12/24 11:32 [place] # (Auto) 0.7 10^3/uL (0.2-0.9) 06/12/24 11:32 Eos # (Auto) 0.1 10^3/uL (0.0-0.8) 06/12/24 11:32 Baso # (Auto) 0.0 10^3/uL (0.0-0.1) 06/12/24 11:32 Nucleated RBC % (auto) 0 % 06/12/24 11:32 Nucleated RBCs # 0.0 /100WBC 06/12/24 11:32 PT 23.20 SECONDS (12.1-14.9) H 06/12/24 12:00 INR 1.93 (0.8-1.2) H 06/12/24 12:00 Sodium 139 mmol/L (136-145) 06/12/24 12:00 Potassium 3.8 mmol/L (3.5-5.1) 06/12/24 12:00 Chloride 105 mmol/L (98-107) 06/12/24 12:00 Carbon Dioxide 26 mmol/L (22-29) 06/12/24 12:00 Anion Gap 11.8 (5-19) 06/12/24 12:00 BUN 9 mg/dL (8-23) 06/12/24 12:00 Creatinine 0.5 mg/dL (0.7-1.2) L 06/12/24 12:00 GFR Calculation 169.0 mL/min (90-130) H 06/12/24 12:00 Glucose 95 mg/dL (65-115) 06/12/24 12:00 Calculated Osmolality 286 mOsm/kg (285-295) 06/12/24 12:00 Calcium 8.8 mg/dL (8.5-10.5) 06/12/24 12:00 Total Bilirubin 0.4 mg/dL (0.15-1.2) 06/12/24 12:00 AST 18 U/L (0-40) 06/12/24 12:00 ALT 21 U/L (0-41) 06/12/24 12:00 Alkaline Phosphatase 59 U/L (40-130) 06/12/24 12:00 NT-Pro-B Natriuret Pep 228 pg/mL (0-125) H 06/12/24 12:00 Total Protein 6.3 g/dL (6.6-8.7) L 06/12/24 12:00 Albumin 3.9 g/dL (3.5-5.2) 06/12/24 12:00 Globulin 2.4 g/dL (1.3-4.6) 06/12/24 12:00 Influenza A (PCR) Negative (Negative) 06/12/24 11:25 Influenza Type B (PCR) Negative (Negative) 06/12/24 11:25 RSV (PCR) Negative (Negative) 06/12/24 11:25 SARS-CoV-2 (PCR) Negative (Negative) 06/12/24 11:25 All radiology interpretation(s) finalized by discharge Discharge Plan Discharge Patient Disposition: Home Clinical Impression: Acute exacerbation of chronic obstructive airways disease Condition: Stable Prescriptions: New prednisone 50 mg tablet 50 mg PO DAILY Qty: 5 0RF No Action tadalafil [Cialis] 5 mg tablet 5 mg PO DAILY Qty: 90 3RF atorvastatin 40 mg tablet 40 mg PO QPM ipratropium-albuterol 0.5 mg-3 mg(2.5 mg base)/3 mL solution for nebulization 3 ml INHALATION Q6H lisinopril-hydrochlorothiazide 20-12.5 mg tablet 1 tab PO DAILY pantoprazole 40 mg tablet,delayed release (DR/EC) 40 mg PO BID gabapentin 300 mg capsule 300 mg PO TID albuterol sulfate 90 mcg/actuation HFA aerosol inhaler 2 puff INHALATION Q6H levothyroxine 112 mcg tablet 112 mcg PO DAILY Trelegy Ellipta 200-62.5-25 mcg blister with device 1 inh INHALATION DAILY prednisone 10 mg tablet 10 mg PO DAILY warfarin 7.5 mg tablet 7.5 mg PO .THREEXWEEK Rx Instructions: TAKE ONE TABLET BY MOUTH THREE TIMES A WEEK ON TUESDAY/TUESDAY/TUESDAY (TAKE 5 MG ON TUESDAY/TUESDAY/TUESDAY/TUESDAY) Discharge Orders: Discharge ED (Routine); Ordered 06/12/24 Ordered By: Joce Aponte Referrals: Shelli Silva MD [Primary Care Provider] - Discharge Diet: Advance as tolerated Discharge Activity: Resume usual activity Patient Instructions: COPD (Chronic Obstructive Pulmonary Disease) (ED) Print Language: Nepali Coding Level of Care Code ED Assistant Portfolio Manager for Armand Lino
[2024-06-12 11:44] LABS: Basophils % 0.6 %; Eosinophils # 0.1 10^3/uL (0.0-0.8); Eosinophils % 1.2 %; Lymphocytes # 2.7 10^3/uL (0.8-4.8); Lymphocytes % 37.1 %; Mean Corpuscular HGB Conc 34.3 g/dL (30-55); Mean Corpuscular Hemoglobin 34.1 pg (27-33); Mean Corpuscular Volume 99.4 fl (82-101); Mean Platelet Volume 8.7 fL (7.4-10.4); Monocytes # 0.7 10^3/uL (0.2-0.9); Monocytes % 9.6 %; Neutrophils # 3.73 10^3/uL (1.8-7.7); Neutrophils % 51.4 %; Nucleated Red Blood Cells % 0 %; Platelet Count 296 10^3/cmm (157-399); Red Blood Count 4.63 10^6/uL (3.85-5.65); Red Cell Distribution Width 13.5 % (12.1-15.1); White Blood Count 7.26 10^3/uL (3.29-11.43)
[2024-06-12 12:00] VITALS: BP 162/87; PULSE 61; RESP 22; O2SAT 93
[2024-06-12 12:15] LABS: Influenza A NEGATIVE (Negative); Influenza B NEGATIVE (Negative); Respiratory Syncytial Virus Ce NEGATIVE (Negative); SARS-CoV-2 PCR NEGATIVE (Negative)
[2024-06-12 12:24] LABS: INR 1.93 (0.8-1.2)
[2024-06-12 12:30] VITALS: BP 141/84; PULSE 68; RESP 18; O2SAT 95
[2024-06-12 12:32] VITALS: PULSE 59; RESP 20; O2SAT 95
[2024-06-12] MEDS: albuterol 2.5 mg/3 mL Neb INHALATION (12:32)
[2024-06-12] MEDS: ipratropium-albuterol 3 mL Neb INHALATION (12:32)
[2024-06-12 12:40] VITALS: PULSE 61
[2024-06-12 12:43] LABS: Alanine Aminotransferase 21 U/L (0-41); Albumin Level 3.9 g/dL (3.5-5.2); Alkaline Phosphatase 59 U/L (40-130); Anion Gap 11.8 (5-19); Aspartate Amino Transferase 18 U/L (0-40); Blood Urea Nitrogen 9 mg/dL (8-23); Calcium 8.8 mg/dL (8.5-10.5); Carbon Dioxide 26 mmol/L (22-29); Chloride 105 mmol/L (98-107); Creatinine Clr Calc Pharmacy 150.7364; Globulin 2.4 g/dL (1.3-4.6); Glucose 95 mg/dL (65-115); NT Pro B Type Natriuretic Pept 228 pg/mL (0-125); Osmolality Calculated 286 mOsm/kg (285-295); Potassium 3.8 mmol/L (3.5-5.1); Sodium 139 mmol/L (136-145); Total Bilirubin 0.4 mg/dL (0.15-1.2); Total Protein 6.3 g/dL (6.6-8.7)
[2024-06-12 12:56] VITALS: BP 141/84; PULSE 61; O2SAT 95
== END 2024-06-12 12:57 | disposition home or self-care (01) ==
PROVIDERS: Emergency Provider Emergency Medicine; PCP Family Medicine
DX: J44.1 Chronic obstructive pulmonary disease with (acute) exacerbation (principal); Z11.52 Encounter for screening for COVID-19; Z79.01 Long term (current) use of anticoagulants; F17.210 Nicotine dependence, cigarettes, uncomplicated; Z86.73 Personal history of transient ischemic attack (TIA), and cerebral infarction without residual deficits; I10 Essential (primary) hypertension
CPT/HCPCS: 71045; 80053; 83880; 85025; 85610; 87637; 93005; 94640; 99285; J7613; J9999

== ENCOUNTER → 2024-07-27 11:39 | Outpatient (BNVA) | payer BC, MEDICAID, SELFPAY | PROVIDERS: PCP Family Medicine; Visit Provider Family Medicine | DX: I10 Essential (primary) hypertension (principal); E78.00 Pure hypercholesterolemia, unspecified; I25.10 Atherosclerotic heart disease of native coronary artery without angina pectoris; Z12.5 Encounter for screening for malignant neoplasm of prostate | CPT/HCPCS: 80061; 84443; G0103 ==

== ENCOUNTER → 2024-11-20 08:57 | Outpatient (BNVA) | payer BC, MEDICAID, SELFPAY | PROVIDERS: PCP Family Medicine; Visit Provider Family Medicine | DX: Z79.01 Long term (current) use of anticoagulants (principal); I82.492 Acute embolism and thrombosis of other specified deep vein of left lower extremity | CPT/HCPCS: 85610 ==

== ENCOUNTER 2025-02-17 08:55 | Emergency (ER) | payer MEDICARE, MEDICAID, SELFPAY ==
--- NOTE | 2025-02-17 08:57 | XRR_ITS ---
PROCEDURE INFORMATION: Exam: XR Chest Exam date and time: 02/17/2025 9:05 AM Age: 59 years old Clinical indication: Pain; Chest pressure; Additional info: Chest pain; Snf smoker TECHNIQUE: Imaging protocol: Radiologic exam of the chest. Views: 1 view. COMPARISON: CR XR chest 1V portable [id number] 06/12/2024 11:48 AM FINDINGS: Lungs: There is linear subsegmental atelectasis in the right lung base. The lungs are otherwise clear. Pleural spaces: Unremarkable. No pleural effusion. No pneumothorax. Heart/Mediastinum: Unremarkable. No cardiomegaly. Bones/joints: There are postoperative changes of cervical fusion. XR/XR chest 1V portable [id number] IMPRESSION: Atelectasis right lung base.
--- OUTSIDE RECORDS SUMMARY | 2025-02-17 08:57 | XMS_ITS | Encounter Summary ---
Author Organization [facility] Address [address] [place] [address] Care Team Providers Care Sugarcane Planter Name Role Phone Jacki Pappas MD Primary Care Provider +1- [phone] Encounter Details Date Type Department Care Team (Late st Contact Info) Description 02/12/2025 External Device Data [facility] Provider, Abstract NO ADDRESS ON FILE Social History Tobacco Use Types Packs/Day Years Used Date Smoking Tobacco: Every Day Cigarettes Smokeless Tobacco: Never Alcohol Use Standard Drinks/Week Comments Yes 0 (1 standard drink = 0.6 oz pur e alcohol) Feeling Safe Answer Date Recorded Are you in a relationship wi th someone who hurts you emotionally and/or physically? 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
[2025-02-17 08:58] VITALS: BP 163/84; PULSE 84; RESP 20; TEMP 36.6; O2SAT 95; BMI 24.4
--- OUTSIDE RECORDS SUMMARY | 2025-02-17 08:58 | XMS_ITS | Clinical Summary ---
Author Organization [facility] Address [address] Flores: Epic Prelude ADT [place] [address] Care Team Providers Care Morals Squad Police Officer Name Role Phone Jacki Pappas MD Primary Care Provider +1- [phone] Allergies Active Allergy Reactions Criticality Noted Date Comments Levofloxacin Rash Low 10/24/2018 Morphine Other (See Comments) 10/24/2018 At injection site arm turned white and swelled Medications tamsulosin (FLOMAX) 0.4 mg capsule 0.4 mg daily. 9 Active nitroglycerin (NITROSTAT) 0.4 mg Tablet, Sublingual Place 0.4 mg under tongue every 5 minutes as needed for Chest Pain. 9 Active levothyroxine 125 mcg tablet 125 mcg daily. 9 Active warfarin (COUMADIN) 6 mg tablet 6 mg daily. 9 Active fluticasone propionate (FLONASE) 50 mcg/spray [place], Suspension nasal inhaler Administer 2 Sprays in each nostril daily. 9 Active atorvastatin (LIPITOR) 40 mg tablet 40 mg daily. Active gabapentin (NEURONTIN) 300 mg capsule 300 mg 3 times daily. 9 Active pantoprazole (PROTONIX) 40 mg Tablet, Delayed Release (E.C.) 40 mg daily. 9 Active lisinopril-hyd roCHLOROthiazi de (ZESTORETIC) 20-12.5 mg tablet 1 Tablet daily. 9 Active fluticasone furoate-vilant [place] (Breo Ellipta) 100-25 mcg/dose Disk with Device 1 Puff daily. 9 Active carvediloL (COREG) 12.5 mg tablet 12.5 mg 2 times daily. Active aspirin (ECOTRIN EC) 81 mg Tablet, Delayed Release (E.C.) Take 81 mg by mouth daily. Active ranolazine ER (RANEXA) 500 mg Extended Release 12 hour tablet 500 mg 2 times daily. Active albuterol sulfate 90 mcg/Actuation inhaler Take 2 Puffs by inhalation see administration instructions 1-2 puffs every 4-6 hours PRN . Active warfarin (COUMADIN) 1 mg tablet 1 mg daily. Active warfarin (COUMADIN) 5 mg tablet 5 mg daily Take 1/2 tablet daily. Active TADALAFIL ORAL Take 5 mg by mouth daily. 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 06/18/2021 Deep venous thrombosis 06/18/2021 Gastroesophageal reflux disease without esophagi tis 06/18/2021 Encounters Date Type Department Care Team Description 02/12/2025 External Device Data [facility] AB[facility]CTION Provider, Abstract 02/12/2025 External Device Data [facility] AB[facility]CTION Provider, Abstract 02/12/2025 External Device Data [facility] Provider, Abstract 01/02/2025 External Device Data [facility] Provider, Abstract 12/26/2024 External Device Data [facility] Provider, Abstract 12/11/2024 External Device Data [facility] Provider, Abstract from Last 3 Months Family History Medical History Relation Name Comments Colon Cancer Neg Hx Social History Tobacco Use Types Packs/Day Years [...] on file 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 Gender Identity Not on file Sexual Orientation Not on file Last Filed Vital Signs Vital Sign Reading Time Taken Comments Blood Pressure 136/72 02/28/2024 9:00 AM ELECTRONICS WARFARE TECHNICIAN Pulse 76 02/28/2024 9:10 AM ELECTRONICS WARFARE TECHNICIAN Temperature 36.4 C (97.5 F) 02/28/2024 9:00 AM ELECTRONICS WARFARE TECHNICIAN Respiratory Rate 14 02/28/2024 9:10 AM ELECTRONICS WARFARE TECHNICIAN Oxygen Saturation 95% 02/28/2024 9:00 AM ELECTRONICS WARFARE TECHNICIAN Inhaled Oxygen Concentration - - Weight 72 kg (158 lb 12.8 oz) 02/24/2024 11:14 P M ELECTRONICS WARFARE TECHNICIAN Height 170.2 cm (5' 7 ) 02/24/2024 11:14 PM ELECTRONICS WARFARE TECHNICIAN Body Mass Index 24.87 02/24/2024 11:14 PM ELECTRONICS WARFARE TECHNICIAN Plan of Treatment Health Maintenance Due Date Last Done Comments DTAP/TDAP/TD VACCINES (1 - Tdap) 1982 COLORECTAL SCREENING 2008 Colorectal Cancer Screening 2008 FIT-DNA Q 3 years 2008 FIT/FOBT Q 1 year 2008 Flex Sig/CT Colonography Q 5 years 2008 RSV VACCINE (60+ or ) (1 - Risk 50-74 years 1-dose series) 2013 ZOSTER VACCINE (1 of 2) 2013 INFLUENZA VACCINE (#1) 2024 Insurance MEDICAID [facility] DUAL ADVANTAGE HMO DSNP Advance Directives For more information, please contact: [phone] * Full Code (Latest Code Status on File) Date Activated Date Inactivated Comments 02/24/2024 11:07 PM 02/28/2024 2:59 PM Care Teams Morals Squad Police Officer Relationship Specialty Start Date End Date Jacki Pappas MD [address] [place] [address] PCP - General Internal Medicine 10/30/18
--- OUTSIDE RECORDS SUMMARY | 2025-02-17 08:58 | XMS_ITS | Encounter Summary ---
Author Organization [facility] Address 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
--- OUTSIDE RECORDS SUMMARY | 2025-02-17 08:58 | XMS_ITS | Encounter Summary ---
Author Organization [facility] Address 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
--- NOTE | 2025-02-17 09:07 | ECG_ITS ---
[facility] Date: 2025-02-17 Pat Name: Alirio Joaquin Department: Room: Gender: Male Butter Melter: : 1965 Requested By: Joce Aponte Order Number: [id number] Garcia MD: Alex Sutton M.D. Measurements Intervals [place] Rate: 84 P: 54 ME: 169 QRS: 31 QRSD: 93 T: 62 QT: 377 QTc: 447 Interpretive Statements SINUS RHYTHM Compared to ECG 06/12/2024 11:14:06 No significant changes Electronically Signed On 02-17-2025 16:50:33 CAVITY PUMP OPERATOR by Alex Sutton M.D. [id number]
--- NOTE | 2025-02-17 09:07 | W.ED.SOB ---
HPI - SOB/Dyspnea General: Chief Complaint: Shortness of Breath/Dyspnea Stated Complaint: sob, congestion, cp Time Seen by Provider: 02/17/25 08:58 Source: patient Mode of arrival: ambulatory Limitations: no limitations History of Present Illness: HPI Narrative: Patient is a 59-year-old male with past medical history of COPD and who is a chronic everyday smoker who presents the emergency department for shortness of breath which she states been going on for the past week and a half. It is worse with exertion reports a history of heart failure as well where he takes diuretics and states that he thinks that this is getting worse. Notes that shortness of breath is significantly worse with exertion. Does not endorse any orthopnea. He is having some associated chest pain that is substernal and states is worse when he coughs. He does note that he has been coughing quite a bit, frequently having coughing fits that is productive of green sputum. He is endorsing some wheezing as well. No fevers, headache, or other upper respiratory symptoms to signify any illness and does not report any sick contact exposure. He does not use home oxygen. Currently at this time he is oxygenating well on room air, mild respiratory distress as he is tachypneic but otherwise nontoxic-appearing. MD elicited complaint: shortness of breath, cough, pain with inspiration and chest pain Pertinent past history: COPD and congestive heart failure Onset (ago): week(s) (1.5) Timing: constant Severity: similar to previous episodes Exacerbating factors: exertion Relieving factors: rest Known history of: COPD and congestive heart failure Associated symptoms: Reports chest pain; Deny abdominal pain, fever(s), lightheadedness, nausea, palpitations or vomiting Related Data Home Medications ?Medication ?Instructions ?Recorded ?Confirmed ipratropium 0.5 mg-albuterol 3 mg 3 ml inhalation Q6H 02/24/24 01/17/25 (2.5 mg base)/3 mL nebulization soln prednisone 10 mg tablet 10 mg PO DAILY 06/12/24 01/17/25 warfarin 7.5 mg tablet 7.5 mg PO QDAY 01/17/25 01/17/25 Previous Rx's ?Medication ?Instructions ?Recorded prednisone 1 mg tablet 4 mg (4 x 1 mg) PO DAILY #240 tabs 11/20/24 prednisone 5 mg tablet 5 mg PO DAILY #90 tabs 11/20/24 albuterol sulfate 90 mcg/actuation 2 puff inhalation Q4H PRN 01/15/25 aerosol inhaler shortness of breath or wheezing #51 grams atorvastatin 40 mg tablet 40 mg PO QPM #90 tabs 01/15/25 fluticasone fur. 200 mcg-umeclid 1 inh inhalation DAILY #60 ea 01/15/25 62.5 mcg-vilant 25 mcg inhalat.powder (Trelegy Ellipta) gabapentin 300 mg capsule 300 mg PO TID #270 caps 01/15/25 levothyroxine 112 mcg tablet 112 mcg PO DAILY #90 tabs 01/15/25 lisinopril 20 1 tab PO DAILY #90 tabs 01/15/25 mg-hydrochlorothiazide 12.5 mg tablet pantoprazole 40 mg tablet,delayed 40 mg PO BID #180 tabs 01/15/25 release tadalafil 5 mg tablet (Cialis) 5 mg PO DAILY #90 tabs 01/15/25 fluticasone 250 mcg-salmeterol 50 1 inh inhalation BID #60 ea 01/17/25 mcg/dose blistr powdr for inhalation (Wixela Inhub) tiotropium bromide 18 mcg capsule 1 cap inhalation DAILY #30 01/17/25 with inhalation device (Spiriva inhalations with HandiHaler) warfarin 2.5 mg tablet 2.5 mg PO DAILY #90 tabs 01/21/25 albuterol sulfate 90 mcg/actuation 1 inh inhalation Q6H PRN shortness 02/17/25 aerosol inhaler of breath or wheezing #6.7 grams doxycycline hyclate 100 mg tablet 100 mg PO BID 10 days #20 tabs 02/17/25 prednisone 20 mg tablet 60 mg (3 x 20 mg) PO ONCE 5 days 02/17/25 #15 tabs Allergies Allergy/AdvReac Type Severity Reaction Status Date / Time levofloxacin (From [facility]) Allergy ALGY-Rash Verified 01/17/25 14:22 morphine Allergy ALGY-Redness Verified 01/17/25 14:22 of Skin Review of Systems General: Reports: 10 or more systems reviewed and unremarkable except in HPI and below Const: Denies: fever(s), chills or fatigue Eyes: Denies: change in vision ENMT: Denies: throat pain, ear or mastoid pain or nasal discharge Card: Reports: chest pain; Denies: palpitations, swelling of feet/ankles or lightheadedness Resp: Reports: dyspnea, productive cough, wheezing and pain on inspiration GI: Denies: abdominal pain, nausea, vomiting, diarrhea or constipation : Denies: flank pain, difficulty urinating, dysuria or urinary frequency Musc: Denies: neck pain, back pain or joint pain Skin/Breast: Denies: rash Neuro: Denies: headache(s), numbness in extremities or weakness in extremities PFSH ED PFSH: Medical History GERD without esophagitis Vitamin D deficiency Obstructive sleep apnea on CPAP BPH loc w urin obs/LUTS Hypercholesterolemia Hypertension, 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 with INR goal of 2.0-3.0 Screening for lung cancer neg LDCT 03.05.24 Tenosynovitis of right hand cat bite 02/27 Hx of myocardial infarction Nicotine dependence, cigarettes, with other nicotine-induced disorders Hypothyroid Psoriatic arthritis Coronary artery disease hx of MO; has had ECHOs and cardiac caths; no stents or angioplasty Deep vein thrombosis (DVT) of lower extremity, unspecified chronicity, unspecified laterality, unspecified vein hx of 2 DVTs; on warfarin for life TIA (transient ischemic attack) Panlobular emphysema Rheumatoid arthritis involving multiple sites, unspecified whether rheumatoid factor present Surgical History Hx of colonoscopy trying to locate report; [facility] faxed back no report there Hx of cardiac cath reports he has had 2 angiograms and has minimal plaque but angio and echo show old heart attack History of appendectomy History of cholecystectomy History of hip replacement Right History of neck surgery cervical Family History Father Diabetes mellitus, type 2 Heart disease Stroke Mother Diabetes mellitus, type 2 Heart disease COPD (chronic obstructive pulmonary disease) Social History Smoking and tobacco/nicotine status: current every day tobacco/nicotine user cigarettes Packs smoked per day: 0.75 Alcohol intake: current Alcohol intake frequency: 3 or more drinks per day Alcohol type: beer Substance/Drug Use: never Household members: spouse Marital status: Number of children: 7 Highest education level completed: High School Graduate Current occupational status: disabled 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; 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 Physical Exam Const: COMMON NORMALS: no acute distress, patient oriented x3 and no limitations GENERAL APPEARANCE: cooperative, comfortable and well developed ORIENTATION/CONSCIOUSNESS: Yes awake, Yes oriented to person, Yes oriented to place and Yes oriented to time HENMT: COMMON NORMALS: normocephalic, atraumatic and hearing grossly normal bilaterally HEAD & SCALP: normocephalic and atraumatic Eye: COMMON NORMALS: Equal, round and reactive pupils present, EOMs intact bilaterally and conjunctivae normal CONJUNCTIVA: Yes conjunctivae normal PUPIL: Yes Equal, round and reactive pupils present Neck/C-Spine: COMMON NORMALS: full ROM, supple and no JVD Resp: OTHER: There is inspiratory and expiratory wheezing throughout all lung armando. He is in mild respiratory distress, mildly tachypneic and there is some use of accessory muscles. Cardio: COMMON NORMALS: no JVD, regular rate, regular rhythm, No clicks present (Cardio), No murmurs present (Cardio) and No rub (Cardio) RATE: regular rate RHYTHM: regular rhythm GI: COMMON NORMALS: Normal to inspection, nondistended, normoactive bowel sounds present, Soft to palpation and non-tender AUSCULTATION: Yes normoactive bowel sounds PALPATION: Yes Soft to palpation RECTAL EXAM: Yes deferred Extremity: COMMON NORMALS: normal to inspection, full ROM and capillary refill normal Neuro: COMMON NORMALS: patient oriented x3, moves all extremities, no focal motor deficits and no sensory deficits noted SENSORIUM/ORIENTATION: Yes oriented to person, Yes oriented to place and Yes oriented to time Skin: COMMON NORMALS: no rashes or lesions noted GENERAL SKIN EXAM: no rashes or lesions noted Course Vital Signs: Vital signs: Vital Signs Temperature 98 F 02/17/25 08:58 Pulse Rate 90 02/17/25 10:04 Respiratory Rate 25 H 02/17/25 10:04 Blood Pressure 140/75 02/17/25 10:04 Pulse Oximetry 92 02/17/25 10:04 Oxygen Delivery Me thod Room Air 02/17/25 10:04 MDM - SOB/Dyspnea Medical Decision Making Patient presented for shortness of breath for a week and a half, productive cough of green sputum. History of COPD, he had noted some chest pain but noted that it was pleuritic in nature and worse with coughing fits that he has been having. Has maintained above 90% SpO2 on room air, mild respiratory distress noted initially but he is notably more comfortable after DuoNeb therapy and Solu-Medrol here in the emergency department. Chest x-ray showing right lower atelectasis but no obvious focal concerns for pneumonia. There is mild leukocytosis with his lab work, likely secondary to his COPD exacerbation. The rest of his lab work was reassuring which included normal delta troponin. COVID flu RSV swab is negative. He will be treated outpatient for COPD exacerbation and he has been oxygenating well and patient is electing to pursue this route as opposed to any admission, I feel that this is appropriate this time I did thoroughly educate him on return precautions of which she verbalizes understanding. Doxycycline, albuterol, prednisone sent to pharmacy and he will follow-up with primary care within the next week for reevaluation. Lab Data 02/17/25 09:05 02/17/25 09:05 Labs/Radiology: Radiology Impressions Chest X-Ray 02/17/25 08:57 IMPRESSION: Atelectasis right lung base. Laboratory Results WBC 16.12 10^3/uL (3.29-11.43) H 02/17/25 09:05 RBC 4.22 10^6/uL (3.85-5.65) 02/17/25 09:05 Hgb 14.30 g/dL (11.27-16.99) 02/17/25 09:05 Hct 42.2 % (37-53) 02/17/25 09:05 MCV 100.0 fl (82-101) 02/17/25 09:05 MCH 33.9 pg (27-33) H 02/17/25 09:05 MCHC 33.9 g/dL (30-55) 02/17/25 09:05 RDW 14.6 % (12.1-15.1) 02/17/25 09:05 Plt Count 297 10^3/cmm (157-399) 02/17/25 09:05 MPV 8.3 fL (7.4-10.4) 02/17/25 09:05 Neut % (Auto) 78.1 % 02/17/25 09:05 Lymph % (Auto) 10.1 % 02/17/25 09:05 Grainger % (Auto) 11.0 % 02/17/25 09:05 Eos % (Auto) 0.1 % 02/17/25 09:05 Baso % (Auto) 0.4 % 02/17/25 09:05 Neut # (Auto) 12.57 10^3/uL (1.8-7.7) H 02/17/25 09:05 Lymph # (Auto) 1.6 10^3/uL (0.8-4.8) 02/17/25 09:05 Grainger # (Auto) 1.8 10^3/uL (0.2-0.9) H 02/17/25 09:05 Eos # (Auto) 0.0 10^3/uL (0.0-0.8) 02/17/25 09:05 Baso # (Auto) 0.1 10^3/uL (0.0-0.1) 02/17/25 09:05 Nucleated RBC % (auto) 0 % 02/17/25 09:05 Nucleated RBCs # 0.0 /100WBC 02/17/25 09:05 Sodium 141 mmol/L (136-145) 02/17/25 09:05 Potassium 3.9 mmol/L (3.5-5.1) 02/17/25 09:05 Chloride 102 mmol/L (98-107) 02/17/25 09:05 Carbon Dioxide 27 mmol/L (22-29) 02/17/25 09:05 Anion Gap 15.9 (5-19) 02/17/25 09:05 BUN 8 mg/dL (8-23) 02/17/25 09:05 Creatinine 0.6 mg/dL (0.7-1.2) L 02/17/25 09:05 GFR Calculation 137.0 mL/min (90-130) H 02/17/25 09:05 Glucose 127 mg/dL (65-115) H 02/17/25 09:05 Calculated Osmolality 292 mOsm/kg (285-295) 02/17/25 09:05 Calcium 9.0 mg/dL (8.5-10.5) 02/17/25 09:05 Total Bilirubin 0.6 mg/dL (0.15-1.2) 02/17/25 09:05 AST 20 U/L (0-40) 02/17/25 09:05 ALT 25 U/L (0-41) 02/17/25 09:05 Alkaline Phosphatase 71 U/L (40-130) 02/17/25 09:05 Troponin T Baseline 10 ng/L (0-15) 02/17/25 09:05 Troponin T 60 Minute 9.72 ng/L (0-15) 02/17/25 09:45 Delta Troponin T -0.28 ABS# (0-10) L 02/17/25 09:45 NT-Pro-B Natriuret Pep 493 pg/mL (0-125) H 02/17/25 09:05 Total Protein 6.2 g/dL (6.6-8.7) L 02/17/25 09:05 Albumin 4.1 g/dL (3.5-5.2) 02/17/25 09:05 Globulin 2.1 g/dL (1.3-4.6) 02/17/25 09:05 Influenza A (PCR) Negative (Negative) 02/17/25 09:21 Influenza Type B (PCR) Negative (Negative) 02/17/25 09:21 RSV (PCR) Negative (Negative) 02/17/25 09:21 SARS-CoV-2 (PCR) Negative (Negative) 02/17/25 09:21 All radiology interpretation(s) finalized by discharge Discharge Plan Discharge Patient Disposition: Home Clinical Impression: COPD exacerbation Condition: Stable Prescriptions: New prednisone 20 mg tablet 60 mg PO ONCE 5 Days Qty: 15 0RF albuterol sulfate 90 mcg/actuation HFA aerosol inhaler 1 inh inhalation Q6H PRN (Reason: shortness of breath or wheezing) Qty: 6.7 0RF doxycycline hyclate 100 mg tablet 100 mg PO BID 10 Days Qty: 20 0RF No Action warfarin 7.5 mg tablet 7.5 mg PO QDAY tiotropium bromide [Spiriva with HandiHaler] 18 mcg capsule, w/inhalation device 1 cap inhalation DAILY Qty: 30 5RF Rx Instructions: puncture 1 cap using device; one dose = 2 inhalations fluticasone propion-salmeterol [Wixela Inhub] 250-50 mcg/dose blister with device 1 inh inhalation BID Qty: 60 5RF prednisone 5 mg tablet 5 mg PO DAILY Qty: 90 0RF Rx Instructions: this is in addition to the 1mg tabs prednisone 1 mg tablet 4 mg PO DAILY Qty: 240 0RF Rx Instructions: in addition to the 5mg atorvastatin 40 mg tablet 40 mg PO QPM Qty: 90 1RF Trelegy Ellipta 200-62.5-25 mcg blister with device 1 inh INHALATION DAILY Qty: 60 5RF albuterol sulfate 90 mcg/actuation HFA aerosol inhaler 2 puff INHALATION Q4H PRN (Reason: shortness of breath or wheezing) Qty: 51 5RF Rx Instructions: he needs 2 each month so 6 inhalers per 90d gabapentin 300 mg capsule 300 mg PO TID Qty: 270 1RF levothyroxine 112 mcg tablet 112 mcg PO DAILY Qty: 90 1RF lisinopril-hydrochlorothiazide 20-12.5 mg tablet 1 tab PO DAILY Qty: 90 1RF pantoprazole 40 mg tablet,delayed release (DR/EC) 40 mg PO BID Qty: 180 1RF tadalafil [Cialis] 5 mg tablet 5 mg PO DAILY Qty: 90 3RF warfarin 2.5 mg tablet 2.5 mg PO DAILY Qty: 90 0RF ipratropium-albuterol 0.5 mg-3 mg(2.5 mg base)/3 mL solution for nebulization 3 ml INHALATION Q6H prednisone 10 mg tablet 10 mg PO DAILY Discharge Orders: Discharge ED (Routine); Ordered 02/17/25 Ordered By: Jesus Coppola Referrals: Shelli Silva MD [Primary Care Provider, Family Practice] Patient Instructions: Patient Portal & Cong Instructions Activity Restrictions/Additional Instructions: COPD Exacerbation Discharge Instructions Your Diagnosis You were treated in the emergency department for a flare-up (exacerbation) of your chronic obstructive pulmonary disease (COPD). This means your breathing symptoms got worse, likely due to an infection or irritation in your lungs. Your Medications You are being prescribed three medications to help you recover: 1. Doxycycline 100 mg: Take one tablet by mouth twice daily for 10 days. This antibiotic helps fight bacterial infections in your lungs. Take with a full glass of water and avoid lying down for at least 30 minutes after taking it. 2. Albuterol inhaler: Use as needed for shortness of breath or wheezing. This is a rescue inhaler that opens up your airways quickly. You may use it every 4-6 hours if needed. 3. Prednisone: Take as prescribed for 5 days. This steroid medication reduces inflammation in your lungs and helps you recover faster. Take with food to avoid stomach upset. Do not stop this medication early, even if you feel better. What to Expect - Recovery from a COPD flare-up can take 4-6 weeks. - Your breathing should gradually improve over the next several days. - Continue using your regular COPD medications as prescribed by your doctor. Activity and Self-Care - Rest as needed, but try to stay as active as you can tolerate. - Avoid smoking and secondhand smoke. - Avoid air pollution, strong fumes, and other lung irritants. - Stay hydrated by drinking plenty of water. WHEN TO RETURN TO THE EMERGENCY DEPARTMENT Seek immediate medical attention if you experience any of the following: - Shortness of breath or rapid breathing at rest that does not improve with your rescue inhaler - Chest pain - Fever (temperature above 100.4?F or 38?C) - Confusion or difficulty thinking clearly - Bluish color to your lips or fingernails - Severe difficulty breathing or feeling like you cannot catch your breath - Increasing swelling in your legs or ankles - Coughing up blood - Symptoms that are getting worse despite taking your medications Follow-Up Care - Schedule a follow-up appointment with your primary care doctor or lung specialist within 1-2 weeks. - Bring all your medications to your follow-up appointment. - Discuss a long-term treatment plan to prevent future flare-ups. Questions? If you have questions about your medications or treatment, contact your doctor's office during regular business hours. For urgent concerns, call your doctor's after-hours line or return to the emergency department. Print Language: British Coding Level of Care Code ED Grey Stock Recorder for Armand Lino
[2025-02-17 09:11] LABS: Hematocrit 42.2 % (37-53); Hemoglobin 14.30 g/dL (11.27-16.99); Mean Corpuscular HGB Conc 33.9 g/dL (30-55); Mean Corpuscular Hemoglobin 33.9 pg (27-33); Mean Corpuscular Volume 100.0 fl (82-101); Nucleated Red Blood Cells % 0 %; Platelet Count 297 10^3/cmm (157-399); Red Blood Count 4.22 10^6/uL (3.85-5.65); White Blood Count 16.12 10^3/uL (3.29-11.43)
[2025-02-17] MEDS: methylPREDNISolone sod succ 125 mg/2 mL INJ IVP (09:15)
[2025-02-17 09:17] VITALS: BP 141/79; PULSE 90; O2SAT 92
[2025-02-17 09:29] VITALS: PULSE 82; RESP 18; O2SAT 92
[2025-02-17 09:42] LABS: Troponin(5th) Baseline 10 ng/L (0-15)
[2025-02-17 09:50] LABS: Alanine Aminotransferase 25 U/L (0-41); Albumin Level 4.1 g/dL (3.5-5.2); Alkaline Phosphatase 71 U/L (40-130); Anion Gap 15.9 (5-19); Aspartate Amino Transferase 20 U/L (0-40); Blood Urea Nitrogen 8 mg/dL (8-23); Calcium 9.0 mg/dL (8.5-10.5); Carbon Dioxide 27 mmol/L (22-29); Chloride 102 mmol/L (98-107); Globulin 2.1 g/dL (1.3-4.6); Glucose 127 mg/dL (65-115); Osmolality Calculated 292 mOsm/kg (285-295); Potassium 3.9 mmol/L (3.5-5.1); Sodium 141 mmol/L (136-145); Total Protein 6.2 g/dL (6.6-8.7)
[2025-02-17 09:51] LABS: NT Pro B Type Natriuretic Pept 493 pg/mL (0-125)
--- NOTE | 2025-02-17 09:57 | ECG_ITS ---
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 Measurements Intervals [place] Rate: 82 P: 32 MI: 135 QRS: 30 QRSD: 101 T: 53 QT: 385 QTc: 450 Interpretive Statements SINUS RHYTHM Compared to ECG 02/17/2025 09:07:22 No significant changes Electronically Signed On 02-17-2025 17:01:29 CLOTH HAULER by Alex Sutton M.D. [email or web address]
[2025-02-17 10:04] VITALS: BP 140/75; PULSE 90; RESP 25; O2SAT 92
[2025-02-17 10:06] LABS: Respiratory Syncytial Virus Ce NEGATIVE (Negative); SARS-CoV-2 PCR NEGATIVE (Negative)
[2025-02-17 10:48] VITALS: BP 142/91; PULSE 82; O2SAT 93
== END 2025-02-17 10:50 | disposition home or self-care (01) ==
PROVIDERS: Emergency Medicine; Emergency Provider Physician Assistant; PCP Family Medicine
DX: J44.1 Chronic obstructive pulmonary disease with (acute) exacerbation (principal); Z79.01 Long term (current) use of anticoagulants; Z11.52 Encounter for screening for COVID-19; F17.210 Nicotine dependence, cigarettes, uncomplicated; Z86.73 Personal history of transient ischemic attack (TIA), and cerebral infarction without residual deficits; I10 Essential (primary) hypertension; I25.10 Atherosclerotic heart disease of native coronary artery without angina pectoris
CPT/HCPCS: 36415; 71045; 80053; 83880; 84484; 85025; 87637; 93005; 94640; 96374; 99285; J2919; J9999